=== PATIENT | male | born 1995 | race African-American/Black ===

== ENCOUNTER 2016-06-29 19:33 | Inpatient (IN) ==
[2016-06-29] MEDS ORDERED: ONDANSETRON 4 MG/2 ML VIAL IV STA (20:05)
[2016-06-29] MEDS ORDERED: MORPHINE 2 MG/1 ML SYRINGE IV STA (20:05)
[2016-06-29] MEDS ORDERED: ONDANSETRON 4 MG/2 ML VIAL ONE (20:14)
[2016-06-29] MEDS ORDERED: MORPHINE 2 MG/1 ML SYRINGE ONE (20:14)
--- NOTE | 2016-06-29 20:30 | Emergency Department Note ---
Sami Thomas Brittany, am scribing for, and in the presence of, Carlos Ahumada MD 20:08. Brandyn Thomas Robert M, MD, personally performed the services described in this documentation, ascribed by Kelsie Gallardo in my presence, and it is both accurate and complete . Arrival - Arrival Chief Complaint: Urogenital - Male Stated Complaint: swollen testical ED Nursing Triage Note: patient c/o swollen right testicle for about 1 hour along with pain. denies any injury. states he had clear dischage without odor yesterday. sexual active. denies using condom. 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 Patient denies having any recent injury. He reports that he noticed some light, clear penile discharge without odor about a week ago. Patient has no other complaint/ pain in the ED at this time. Allergies/Adverse Reactions: Allergies Allergy/AdvReac Type Severity Reaction Status Date / Time No Known Allergies Allergy Unverified 06/29/16 19:42 Home Medications: Home Medications Medication Instructions Recorded Confirmed Type No Known Home Medications [No 06/29/16 06/29/16 History Known Home Medications] Review of System - Review of System 12 point system: reviewed and no additional remarkable complaints except as stated - Review of System Genitourinary male: Present: discharge (light, clear), testicular pain (right), other (swollen right testicle) Medical,Surgical,& Family Hx - Social History Smoking Status: Current every day smoker Frequency of Alcohol Use: None Type of Drug Use: None Exam Vital Signs: Vital Signs Temperature 98.7 F 06/29/16 19:38 Pulse Rate 73 06/29/16 19:38 Respiratory Rate 17 06/29/16 19:38 Blood Pressure 176/81 06/29/16 19:38 O2 Sat by Pulse Oximetry 97 06/29/16 19:38 - General General appearance: alert, in no apparent distress - Head Head exam: Present: atraumatic, normocephalic - Eye Eye exam: Present: PERRL, EOMI - ENT ENT exam: Present: mucous membranes moist, TM's normal bilaterally - Neck Neck exam: Present: full ROM, trachea midline. Absent: tenderness - Chest Chest inspection: Present: symmetric chest wall rise. Absent: tenderness - Respiratory Respiratory exam: Present: normal lung sounds bilaterally. Absent: rales, rhonchi, wheezes - Cardiovascular Cardiovascular exam: Present: regular rate, normal rhythm, normal heart sounds. Absent: murmur, rubs, gallop - Abdominal Exam Abdominal exam: Present: soft, normal bowel sounds. Absent: distention, tenderness - exam: Present: testicular tenderness (right), other (right testicle is hard to touch; not swollen; mild malrotation of the right testicle). Absent: normal inspection - Extremities Exam Extremities exam: Present: full ROM. Absent: tenderness - Back Exam Back exam: Present: full ROM. Absent: tenderness - Neurological Exam Neurological exam: Present: alert, oriented X3, CN II-XII intact, normal gait, reflexes normal. Absent: motor sensory deficit - Psychiatric Psychiatric exam: Present: normal affect, normal mood - Skin Skin exam: Present: warm, dry, intact, normal color Course - Consultations Consultation #1: Dr. Verduzco was notified of the testicular torsion and requests I call surgery back and have anesthesia come see the patient in addition to having him added to the surgery book as surgical exploration of the right testicle. Time: 20:29 Results - Diagnostic Findings Procedure: Ultrasound: image reviewed by me (right testicular torsion) Disposition Clinical Impression: Right testicular torsion Case discussed with: patient, patient's family Disposition: Still a Patient Condition: Stable Time of Disposition: 20:30
--- NOTE | 2016-06-29 20:55 | Ultrasound Report ---
History right testicular pain and swelling Grayscale, spectral Doppler, and color flow analysis performed and interpreted The testicles are normal in size and echotexture bilaterally No intratesticular mass is seen There is no identifiable color flow to the right testicle. There is color flow to the left testicle In the region of the epididymal head on the right, there is prominent enlargement and heterogeneity. findings personally discussed with the ordering physician at 8:50 PM Impression: 1. Findings suggesting torsion of the right testicle with at least 2 cm enlargement in the region of the epididymal head on the right of uncertain etiology PROCEDURE INTERPRETED AT [facility] DEPARTMENT OF RADIOLOGY Final Report Signed by: Dr. Ashleigh Lee
[2016-06-29] MEDS ORDERED: PANTOPRAZOLE 40 MG VIAL IV STA (20:57)
[2016-06-29] MEDS ORDERED: PANTOPRAZOLE 40 MG VIAL IV ONE (20:58)
--- NOTE | 2016-06-29 21:08 | Urology History & Physical ---
- Constitutional Constitutional: Absent: fatigue, lethargy, night sweats, stops breathing during sleep - Cardiovascular Cardiovascular: Absent: chest pain with activity, radiating jaw, neck or arm pain, palpitations - Respiratory Respiratory: Absent: cough, dyspnea, wheezing - Gastrointestinal Gastrointestinal: Absent: diarrhea, heartburn, melena, jaundice - Genitourinary Genitourinary: Present: as per HPI - Musculoskeletal Musculoskeletal: Absent: back pain, joint swelling - Neurological Neurological: Absent: abnormal gait, abnormal speech - Psychiatric Psychiatric: Absent: anxiety, depression History of Present Illness Chief complaint: pain in the right testicle History of present illness: Mr. Marti is a 20 year old male This 20-year-old black male had an acute onset of right testicular pain about 2- 2-1/2 hours ago and was seen in the emergency room where a scrotal ultrasound showed no blood flow to the right testicle. The patient has no history of trauma and he had no urinary symptoms. He has a past history of having had an acute onset of right testicular pain and a 17 but this resolved spontaneously and he was and it is suspected that he had a torsion at that time with spontaneous reduction. I have discussed right scrotal exploration with the patient and his father we'll explore the right scrotum for testicular torsion with a possible orchiectomy and if a torsion his diagnosis we will do an orchiopexy on the left side. The patient has no past history of any serious urological problems Home Medications Medication Instructions Recorded Confirmed Type No Known Home Medications [No 06/29/16 06/29/16 History Known Home Medications] Allergies Allergy/AdvReac Type Severity Reaction Status Date / Time No Known Allergies Allergy Unverified 06/29/16 19:42 Medical,Surgical,& Family Hx - Medical History Cardio: No history of: Cardiovascular Problems Psychological: No history of: Psychiatric Problems Neurology: No history of: Neurological Problems HEENT: No history of: HEENT Problems Endocrine: No history of: Endocrine Problems Rheumatology: No history of;: Rheumatological Problems Respiratory: No history of: Respiratory Problems Renal: No history of: Renal Problems Genitourinary: No history of: Problems Gastrointestinal: No history of: GI Problems Musculoskeletal: No history of: Musculoskeletal Problems Reproductive: No histroy: Reproductive Problems - Surgical History Surgical History: noncontributory - Family History Family History: noncontributory - Social History Smoking Status: Current every day smoker Frequency of Alcohol Use: None Type of Drug Use: None Exam - Constitutional Vitals: Period Temp Pulse Resp BP Sys/Mclaughlin Pulse Ox Last 24 Hr 98.7 F 73 17 176/81 97 General appearance: normal weight, no acute distress - Head Head exam: Present: normocephalic - Neck Neck exam: Present: normal inspection - Respiratory Respiratory exam: Present: clear to auscultation bilaterally - Cardiovascular Cardiovascular exam: Present: regular rate and rhythm - GI/Abdominal GI/Abdominal exam: Absent: distended, mass, tenderness - Genitourinary Genitourinary: penis with no lesions or discharge, scrotal lesion (the right testicle is enlarged indurated and tender left testicle normal) - Neurological Exam Neurological exam: Present: alert, oriented X3 - Psychiatric Psychiatric exam: Present: normal affect, normal mood - Skin Skin exam: Present: warm, dry
[2016-06-29 21:18] LABS: Basophils # 0.1 10*3/uL (0.0-0.2); Basophils % 0.5 % (0.0-0.8); Eosinophils # 0.2 10*3/uL (0.0-0.87); Eosinophils % 1.4 % (0.00-10.9); Hematocrit 42.1 VOL% (42.0-52.0); Immature Granulocytes % 0.4 %; Immature Granulocytes Absolute 0.05 #; Lymphocytes # 2.7 10*3/uL (1.4-4.0); Lymphocytes % 20.7 % (21.2-54.2); Mean Corpuscular HGB Conc 33.3 GM/DL (32-36); Mean Corpuscular Hemoglobin 26 PG (27-34); Mean Corpuscular Volume 78.5 FL (87-102); Mean Platelet Volume 12.5 FL (9.6-12.0); Monocytes # 0.8 10*3/uL (0.11-0.8); Monocytes % 6.3 % (1.7-12.7); Neutrophils # 9.1 10*3/uL (1.4-7.4); Neutrophils % 70.7 % (38.7-73.9); Platelet Count 205 10*3/uL (130-400); Red Blood Count 5.36 10*6/uL (3.8-5.5); Red Cell Distribution Width 13.2 % (9.3-17.3); White Blood Count 12.8 10*3/uL (4.5-13.71)
[2016-06-29] MEDS ORDERED: LIDOCAINE 1% 5 ML VIAL ONE (21:21)
[2016-06-29] MEDS ORDERED: PROPOFOL 200 MG/20 ML VIAL IV ONE (21:21)
[2016-06-29 21:36] LABS: Calcium 8.7 MG/DL (8.5-10.1)
--- NOTE | 2016-06-29 22:16 | Operative Note ---
Date of procedure: 06/29/16 Pre-op diagnosis: torsion of the right testicle Post-op diagnosis: same Procedure: Under inadequate preop medication the patient was taken to the operating room placed on the table in supine position spinal anesthesia was administered the patient was prepped and draped in usual manner and a timeout procedure was instituted. A right vertical scrotal incision was made in the tunical vaginalis was entered. This testicle was noted to be cyanotic he was delivered through the incision was noted to have 180 twist. The testicle was then reduced were placed in the scrotum and orchiopexy was performed form with 2-0 silk on each side. The scrotum was closed in 2 layers with 2-0 chromic and 3-0 plain. A left vertical scrotal incision was then made in the left testicle was normal and orchiopexy was performed on the left side with 2-0 silk the scrotal skin was closed with 2 layers with 2-0 chromic in 30 plain. Estimated blood loss minimal. The patient tolerated the procedure well and returned to the recovery room in good condition Anesthesia: spinal Surgeon / Physician: Carlos Verduzco Estimated blood loss: minimal Specimens: none sent Condition: stable Disposition: floor Results - Labs CBC & BMP: 06/29/16 20:41 06/29/16 20:41 Discharge Plan - Discharge Data Disposition: Still a Patient - Discharge Medications No Action No Known Home Medications [No Known Home Medications] - Follow Up or Referral - Forms/Instructions
[2016-06-29] MEDS ORDERED: PROMETHAZINE 25 MG/1 ML VIAL IM PRN (22:19)
--- NOTE | 2016-06-29 22:27 | Anesthesia ---
Anesthesia Post OP - Post Ansesthetic Evaluation Patient seen in post op: Yes Resp: within normal limits CV: within normal limits Mental: within normal limits Temp: within normal limits [id number]: within normal limits Nausea and Vomiting: within normal limits Pain: within normal limits
[2016-06-29] MEDS ORDERED: fentaNYL 100 MCG/2 ML VIAL ONE (22:29)
[2016-06-29] MEDS ORDERED: MIDAZOLAM 2 MG/2 ML VIAL ONE ×2 (22:29)
[2016-06-29] MEDS ORDERED: ACETAMINOPHEN 1,000 MG/100 ML VIAL IV ONE (22:29)
[2016-06-29] MEDS ORDERED: HYDROmorphone 2 MG/1 ML VIAL IV PRN (22:37)
[2016-06-29] MEDS ORDERED: ONDANSETRON 4 MG/2 ML VIAL IV PRN (22:37)
[2016-06-29] MEDS ORDERED: LACTATED RINGERS 1,000 ML IV SCH (23:00)
[2016-06-29] MEDS: SODIUM CHLORIDE 0.45% 1,000 ML IV SCH (23:48)
--- NOTE | 2016-06-30 07:53 | Discharge Summary ---
Hospital Course - Hospital Course Hospital Course: This 20-year-old black male was seen in the emergency room with a sudden onset of pain in the right testicle. Ultrasound showed no blood flow to the right testicle. The patient had a scrotal exploration and was found to have a 360 torsion of the right testicle he had reduction of this and bilateral orchiopexy. His postoperative course was uneventful. The patient will be discharged on Caspar 5 mg with instructions on wound care. He'll be followed in the office in 1 week Specialty Discharge - Follow Up or Referrals Follow up with: Carlos Verduzco MD [Physician] - 1 Week Discharge Plan - Discharge Data Disposition: Disch To Home/Self Care Condition at Discharge: Stable Discharge Diet: advance to your usual diet Activity: resume usual activities as tolerated Hygiene: may shower Weight Bearing at Discharge: full weight bearing Driving: no restrictions Contact your physician if you experience:: Redness or swelling - Discharge Medications No Action No Known Home Medications [No Known Home Medications] - Follow Up or Referral Follow Up: Carlos Verduzco MD [Physician] - 1 Week - Forms/Instructions Instructions: Testicular Torsion (DC) Exam - Constitutional Vitals: Period Temp Pulse Resp BP Sys/Mclaughlin Pulse Ox Last 24 Hr 98.3 F-98.3 F 55-83 14-18 84-131/48-70 95-100 DS: Provider Date of admission: 06/29/16 22:17 Primary care physician: . No PCP Attending physician on admission: Carlos Verduzco MD Discharging clinician: Carlos Verduzco MD
--- NOTE | 2016-06-30 09:31 | EKG Report ---
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
[2016-06-30] MEDS: SODIUM CHLORIDE 0.45% 1,000 ML IV SCH (09:51)
[2016-06-30 12:48] VITALS: BP 145/86
== END 2016-06-30 12:53 | disposition home or self-care (01) | DRG 712 ==
LOC: N.ED 19:33 → N.3E 21:15 → N.EDINP 22:17 → N.3E 23:34
PROVIDERS: ADMIT Urology; ATTEND Urology